=== PATIENT | male | born 2000 | race Caucasian/White ===

== ENCOUNTER 2019-06-19 09:31 | Emergency (ER) | payer BC, OTHER ==
[~2019-06-19] VITALS: Ht 177.8 cm; Wt 92.9 kg
[2019-06-19 09:40] VITALS: BP 143/78
[2019-06-19] MEDS ORDERED: morphine 4 MG/ML inj SYRINge IM ONE (11:30)
[2019-06-19] MEDS ORDERED: cyclobenzaprine 10mg tablet PO ONE (11:30)
== END 2019-06-19 11:48 | disposition home or self-care (01) ==
LOC: ER 09:31
DX: M79.602 Pain in left arm (principal); G89.29 Other chronic pain; R20.0 Anesthesia of skin
CPT/HCPCS: 96372; 99283; J2270

== ENCOUNTER 2022-06-11 19:43 | Emergency (ER) | payer MEDICAID, OTHER ==
[~2022-06-11] VITALS: Ht 177.8 cm; Wt 105.9 kg
[2022-06-11 20:22] LABS: BASOPHILS # (AUTO) 0.1 X10'3 (0-0.2); BASOPHILS % (AUTO) 0.8 % (0-1); EOSINOPHILS # (AUTO) 0.6 X10'3 (0-0.9); EOSINOPHILS % (AUTO) 3.8 % (0-6); HEMATOCRIT 40.9 % (42.0-52.0); HEMOGLOBIN 14.2 g/dl (14.0-17.9); LYMPHOCYTES # (AUTO) 3.8 X10'3 (1.1-4.8); LYMPHOCYTES % (AUTO) 25.1 % (21-51); MEAN CORPUSCULAR HEMOGLOBIN 32.1 PG (27.0-31.0); MEAN CORPUSCULAR HGB CONC 34.7 g/dL (33.0-36.5); MEAN CORPUSCULAR VOLUME 92.4 FL (78-98); MEAN PLATELET VOLUME 8.7 FL (7.4-10.4); MONOCYTES # (AUTO) 0.8 X10'3 (0-0.9); MONOCYTES % (AUTO) 5.4 % (2-12); NEUTROPHILS # (AUTO) 9.9 X10'3 (1.8-7.7); NEUTROPHILS % (AUTO) 64.9 % (42-75); PLATELET COUNT 247 X10'3 (140-440); RED BLOOD COUNT 4.43 X10'6 (4.70-6.10); RED CELL DISTRIBUTION WIDTH 14.4 % (11.5-14.5); WHITE BLOOD COUNT 15.2 X10'3 (4.5-11.0)
[2022-06-11 20:41] LABS: ALANINE AMINOTRANSFERASE 73 U/L (12-78); ALBUMIN 4.3 G/DL (3.4-5.0); ALBUMIN/GLOBULIN RATIO 1.3 (1.1-1.5); ALKALINE PHOSPHATASE 98 IU/L (46-116); ANION GAP 8 (8-16); ASPARTATE AMINO TRANSFERASE 26 U/L (10-37); BILIRUBIN,TOTAL 0.3 MG/DL (0.1-1.0); BLOOD UREA NITROGEN 11 MG/DL (7-18); BUN/CREATININE RATIO 11.1 (5.4-32.0); CALCIUM 9.2 MG/DL (8.5-10.1); CHLORIDE 102 MMOL/L (99-107); CREATININE 0.99 MG/DL (0.60-1.10); ETHANOL < 0.010 GM/DL (0.0-0.010); GLUCOSE 109 MG/DL (70-104); POTASSIUM 3.6 MMOL/L (3.5-5.1); SODIUM 139 MMOL/L (135-145); TOTAL CARBON DIOXIDE 29.3 MMOL/L (24-32); TOTAL PROTEIN 7.6 G/DL (6.4-8.2); eGFR > 90 ML/MIN
[2022-06-11 20:50] LABS: ACETAMINOPHEN < 2.0 UG/ML (10-30)
--- NOTE | 2022-06-12 00:31 | NUR ---
millie, grandfather, can be called for additional information. [phone]
[2022-06-12] MEDS ORDERED: BUPR-297 PO (00:47)
[2022-06-12] MEDS ORDERED: DULO60CA65 PO (00:47)
[2022-06-12] MEDS ORDERED: QUET100T34 PO (00:47)
[2022-06-12] MEDS ORDERED: LITH300C PO (00:47)
[2022-06-12] MEDS ORDERED: CARB100T50 PO (00:47)
[2022-06-12] MEDS ORDERED: CHOL20002 PO (00:47)
[2022-06-12 01:53] LABS: CLARITY,URINE CLEAR (Clear); COLOR,URINE YELLOW (Yellow); GLUCOSE, URINE NEGATIVE (Neg); KETONES,URINE NEGATIVE (Neg); LEUKOCYTE ESTERASE ,URINE NEGATIVE (Neg); NITRITES, URINE NEGATIVE (Neg); OCCULT BLOOD,URINE NEGATIVE (Neg); PH,URINE 6.5 (4.8-8.0); PROTEIN,URINE NEGATIVE (Neg); UROBILINOGEN,URINE 0.2 E.U/dL (0.2-1.0)
[2022-06-12 01:59] LABS: UA COLLECTION TYPE CLN CATCH MIDSTREAM
[2022-06-12 02:08] LABS: URINE AMPHETAMINE SCREEN NEGATIVE (Neg); URINE BARBITUATE SCREEN NEGATIVE (Neg); URINE BENZODIAZEPINES SCREEN NEGATIVE (Neg); URINE CANNABINOID SCREEN POSITIVE (Neg); URINE COCAINE SCREEN NEGATIVE (Neg); URINE METHADONE SCREEN NEGATIVE (Neg); URINE OPIATE SCREEN NEGATIVE (Neg); URINE PHENCYCLIDINE SCREEN NEGATIVE (Neg)
--- NOTE | 2022-06-12 02:49 | NUR ---
MED REC. GIVEN TO DR. CURRY TO REVIEW.
--- NOTE | 2022-06-12 02:51 | NUR ---
General assement reviewed
--- NOTE | 2022-06-12 03:14 | NUR ---
ASSUMED CARE FROM SHAHIDA AGGARWAL.
[2022-06-12] MEDS ORDERED: CLIN300C56 PO (03:55)
[2022-06-12] MEDS ORDERED: nicotine 21mg patch - 24 hr TD ONE (05:05)
[2022-06-12] MEDS: clindamycin 150mg capsule PO SCH ×2 (08:00→12:37)
[2022-06-12] MEDS ORDERED: duloxetine 30mg CAPSULE.DR PO SCH (08:00)
[2022-06-12] MEDS ORDERED: cholecalciferol (vitamin D3) 1,000 unit (25mcg) tablet PO SCH (08:00)
[2022-06-12] MEDS ORDERED: carBAMazepine Ext. Release 200 MG TAB.ER.12H PO SCH (08:00)
[2022-06-12] MEDS ORDERED: buPROPion 75mg tablet PO SCH (08:00)
--- NOTE | 2022-06-12 08:15 | NUR ---
LN received report from MARYCRUZ Collins @ approx 0659 today, pt stable. Pharmacy notified that three meds not in omnicell, carbamazepine, clindamycin, and wellbutrin, all needed for 0800. Awaiting delivery.
--- NOTE | 2022-06-12 08:21 | NUR ---
Pt is sleeping well att. Pt stated he was awake all night.
--- NOTE | 2022-06-12 10:20 | NUR ---
Pt took all 0800 medications as ordered. Pt is being evaluated by . Pt is calm and cooperative with staff.
--- NOTE | 2022-06-12 12:24 | NUR ---
Pt awake and sitting up in bed. Pt previously ambulated to restroom. Pt talked to family member on phone, seemed to alleviate some anxiety. Pt eating lunch well, with no complaints att.
--- NOTE | 2022-06-12 12:57 | NUR ---
Lab results - [place] 0.4 - MD gave order to continue [place] order 600mg BID. Order signed by MD and sent to pharmacy.
[2022-06-12] MEDS ORDERED: lithium carbonate 300mg SR tablet (LithoBID) PO ONE (13:45)
[2022-06-12] MEDS ORDERED: lithium carbonate 300mg SR tablet (LithoBID) PO SCH (13:45)
--- NOTE | 2022-06-12 14:10 | NUR ---
Pt ok'd by to transfer to [facility]. Report given to [facility] at approx 1445. Pt aware of transfer.
[2022-06-12 15:18] VITALS: BP 154/92
[2022-06-12] MEDS ORDERED: quetiapine 100mg tablet PO SCH (21:00)
== END 2022-06-12 15:21 ==
LOC: ER 19:44
DX: R45.851 Suicidal ideations (principal); Z20.822 Contact with and (suspected) exposure to COVID-19; R94.6 Abnormal results of thyroid function studies; G89.29 Other chronic pain; F41.9 Anxiety disorder, unspecified; F32.9 Major depressive disorder, single episode, unspecified; F17.200 Nicotine dependence, unspecified, uncomplicated; F12.90 Cannabis use, unspecified, uncomplicated; Z72.89 Other problems related to lifestyle; Z79.899 Other long term (current) drug therapy
CPT/HCPCS: 36415; 80053; 80305; 80320; 80329; 81003; 84443; 85025; 87811; 99285

== ENCOUNTER 2024-01-02 17:03 | Emergency (ER) | payer MEDICAID, OTHER ==
[~2024-01-02] VITALS: Ht 177.8 cm; Wt 114.6 kg
[~2024-01-02 17:03] MED LIST: BUPR-297 PO; CARB100T60 PO; CHOL20002 PO; CLIN300C56 PO; DULO60CA65 PO; LITH300C PO; QUET100T34 PO
[2024-01-02 17:06] VITALS: BP 155/88; PULSE 66; RESP 18; O2SAT 97
[2024-01-02] MEDS ORDERED: CAPSAICIN HP (0.1%) cream TP SCH (17:50)
[2024-01-02] MEDS: pregabalin 75mg capsule PO ONE (17:59)
[2024-01-02] MEDS: CAPSAICIN HP (0.1%) cream TP ONE (18:06)
[2024-01-02] MEDS: dexamethasone sod phosphate 10mg/ml inj PO STA (18:22)
[2024-01-02] MEDS ORDERED: PRED10TA23 PO (18:24)
[2024-01-02 18:34] VITALS: TEMP 98.3
== END 2024-01-02 18:35 | disposition home or self-care (01) ==
LOC: ER 17:03
DX: G62.9 Polyneuropathy, unspecified (principal); G89.29 Other chronic pain; F41.9 Anxiety disorder, unspecified; F32.A Depression, unspecified; F12.90 Cannabis use, unspecified, uncomplicated; Z72.89 Other problems related to lifestyle; Z79.899 Other long term (current) drug therapy; Z79.52 Long term (current) use of systemic steroids
CPT/HCPCS: 99284; J1100

== ENCOUNTER 2024-09-24 18:44 | Emergency (ER) | payer MEDICAID, OTHER ==
[~2024-09-24] VITALS: Ht 180.3 cm; Wt 116.8 kg
[2024-09-24 19:03] VITALS: BP 158/91; PULSE 124; O2SAT 98
[2024-09-24] MEDS ORDERED: PRED20TA PO (20:25)
[2024-09-24] MEDS ORDERED: METH-798 PO (20:25)
[2024-09-24 20:29] VITALS: TEMP 98.2
[2024-09-24] MEDS: dexamethasone sod phosphate 10mg/ml inj IM STA (20:37)
[2024-09-24 20:38] VITALS: RESP 16
[2024-09-24] MEDS: ketorolac trometh 15mg/ml vial 15 MG/ML ML IM ONE (20:38)
== END 2024-09-24 20:47 | disposition home or self-care (01) ==
LOC: ER 18:45
DX: M50.20 Other cervical disc displacement, unspecified cervical region (principal); G89.29 Other chronic pain; F41.9 Anxiety disorder, unspecified; F32.A Depression, unspecified; F12.90 Cannabis use, unspecified, uncomplicated; Z72.89 Other problems related to lifestyle; Z79.899 Other long term (current) drug therapy
CPT/HCPCS: 96372; 99284; J1100; J1885

== ENCOUNTER 2024-11-28 14:10 | Emergency (ER) | payer BC, MEDICAID ==
[~2024-11-28] VITALS: Ht 177.8 cm; Wt 96.8 kg
[~2024-11-28 14:10] MED LIST changes: +METH-798 PO
--- NOTE | 2024-11-28 14:22 | Physician Documentation ---
History of Present Illness ~ Chief Complaint: Shoulder pain Stated Complaint: PAIN IN SHOULDER AND NECK Time Seen by MD: 14:16 Primary Medical Doctor: [facility] Source: patient Mode of Arrival: POV Exam Limitations: no limitations HPI 24-year-old male with acute exacerbation of chronic neck and shoulder pain. Patient is being treated by his primary care provider as well as [facility]. Patient has a nerve conduction study scheduled for December 11 and a nerve block scheduled for December 22. Patient is taking methocarbamol and Lyrica for pain management that woke up with increased amount of pain. Patient is looking for pain relief. No new or acute injuries. Tetanus within 5 years?: No Medication Reconciliation Allergies: Coded Allergies: No Known Allergies (Unverified , 11/28/24) Scheduled Bupropion HCl (Bupropion HCl), 1 TAB PO BID, (Reported) Carbamazepine (Carbamazepine ER), 200 MG PO BID, (Reported) Cholecalciferol (Vitamin D3) (Vitamin D3), 2 CAP PO DAILY, (Reported) Clindamycin HCl (Clindamycin HCl), 1 CAP PO TID, (Reported) Duloxetine HCl (Duloxetine HCl), 1 CAP PO DAILY, (Reported) [place] Carbonate ([place]ot Carbonate), 2 CAP PO BID, (Reported) Methocarbamol (Methocarbamol), 1 TAB PO Q8H Quetiapine Fumarate (Quetiapine Fumarate), 1 TAB PO HS, (Reported) Past Medical History Past Medical History: Chronic Pain, *PSYCH*, Anxiety, Depression Past Surgical History: noncontributory Alcohol Use: Occasionally Drug Use: marijuana Lives with: Family Lives In: Home Review of Systems All Other Systems at this time: Reviewed and Negative Musculoskeletal: Reports: see HPI Physical Exam Vital Signs: RN Vital Signs have been reviewed: Yes, Temperature: 98.6, Heart Rate: 88, Respiratory Rate: 16, BP: 147/90, Pulse Oximetry: 98, Weight: 96.850 Oxygen Flow Rate: 0 General Appearance: alert, WD/WN, no apparent distress Shoulder: normal inspection Shoulder Tenderness to palpate the trapezius and deltoid left shoulder Elbow/Forearm: normal inspection, normal ROM Distal Function: normal pulse, normal cap. refill, normal motor function Progress Results/Orders Results/Orders Vital Signs 11/28/24 14:13 Temp 98.6 Pulse 88 Resp 16 B/P (MAP) 147/90 Pulse Ox 98 O2 Flow Rate 0 Medical Decision Making Findings Requesting he manage spent so he can see primary care for further pain management [facility] Departure Time of Disposition: 14:21 Disposition: 01 HOME / SELF CARE / HOMELESS Impression: Primary Impression: Chronic neck pain Additional Impression: Neuropathy Condition: Stable Discharge Instructions: Shoulder Pain, [id number] Additional Instructions: Continue with the appointments with primary care and [facility]. Referrals: NO PRIMARY CARE PROVIDER (PCP) Education Educated: Patient Educated regarding: diagnosis, treatment, need for follow up Signature Scribe Signature: No scribe Attestation: The note accurately reflects work and decisions made by me.Naima SPENCER 11/28/24 14:21 NAIMA ASHRAF NP Nov 28, 2024 14:22
[2024-11-28] MEDS: HYDROcodone/acetaminophen 10/325mg tab PO ONE (14:30)
[2024-11-28] MEDS: ketorolac trometh 30MG/ML vial 30 MG/ML VIAL IM ONE (14:30)
[2024-11-28 14:36] VITALS: BP 139/85; PULSE 96; RESP 15; TEMP 98.6; O2SAT 99
== END 2024-11-28 14:39 | disposition home or self-care (01) ==
LOC: ER 14:10
DX: G89.29 Other chronic pain (principal); M54.2 Cervicalgia; G62.9 Polyneuropathy, unspecified; M25.512 Pain in left shoulder; F41.9 Anxiety disorder, unspecified; F32.A Depression, unspecified; F12.90 Cannabis use, unspecified, uncomplicated
CPT/HCPCS: 96372; 99283; J1885

== ENCOUNTER 2024-12-12 17:37 | Emergency (ER) | payer BC, MEDICAID ==
[~2024-12-12] VITALS: Ht 177.8 cm; Wt 109.1 kg
[2024-12-12 17:43] VITALS: TEMP 97.8
[2024-12-12] MEDS ORDERED: PREG150C47 PO (17:50)
[2024-12-12] MEDS ORDERED: TIZA4CAP6 (17:50)
[2024-12-12] MEDS ORDERED: LISI30TA4 PO (17:50)
--- NOTE | 2024-12-12 17:57 | ELECTROCARDIOGRAPH REPORT ---
[facility] Test Date: 2024-12-12 Test Time: 17:43:51 Pat Name: RHEA HAWKINS Department: EMERGENCY ROOM Room: Gender: M Wine Sales Representative: : 2000 Requested By: JAVAN PLATA Order Number: [id number] Reading MD: Measurements Intervals [place] Rate: 83 P: 59 NH: 141 QRS: 72 QRSD: 104 T: 3 QT: 375 QTc: 441 Interpretive Statements Sinus rhythm Borderline T wave abnormalities Please click the below link to view image of tracing.
--- NOTE | 2024-12-12 18:00 | Physician Documentation ---
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 He is outside for about 45 minutes changing the tire. It was extremely hot. Following this he started to feel very lightheaded, short of breath, sweaty, and weak. He went home and tried to cool himself off, got in the cold shower, turn on the air conditioning. However, he continued to feel worse including ongoing dizziness and shortness of breath, tingling in his hands and feet, and generalized weakness. He did use his albuterol inhaler twice with only partial improvement. He then started vomiting. His called 911. Here now in the ED, he reports feeling still generally weak and mildly short of breath, but his other symptoms are improving. He has only mild nausea at this time. No other concerns. Medication Reconciliation Allergies: Coded Allergies: No Known Allergies (Unverified , 12/12/24) Scheduled Lisinopril (Lisinopril), 1 TAB PO DAILY, (Reported) Prednisone* (Prednisone*), 2 TAB PO DAILY Pregabalin (Pregabalin), 1 CAP PO TID, (Reported) Miscellaneous Medications Tizanidine Hcl* (Tizanidine Hcl*), (Reported) Discontinued Medications Bupropion HCl (Bupropion HCl), 1 TAB PO BID, (Reported) Discontinued Reason: patient no longer taking Carbamazepine (Carbamazepine ER), 200 MG PO BID, (Reported) Discontinued Reason: patient no longer taking Cholecalciferol (Vitamin D3) (Vitamin D3), 2 CAP PO DAILY, (Reported) Discontinued Reason: patient no longer taking Clindamycin HCl (Clindamycin HCl), 1 CAP PO TID, (Reported) Discontinued Reason: patient no longer taking Duloxetine HCl (Duloxetine HCl), 1 CAP PO DAILY, (Reported) Discontinued Reason: patient no longer taking [place] Carbonate ([place] Carbonate), 2 CAP PO BID, (Reported) Discontinued Reason: patient no longer taking Methocarbamol (Methocarbamol), 1 TAB PO Q8H Discontinued Reason: patient no longer taking Quetiapine Fumarate (Quetiapine Fumarate), 1 TAB PO HS, (Reported) Discontinued Reason: patient no longer taking Past Medical History Past Medical History: Chronic Pain, *PSYCH*, Anxiety, Depression Past Surgical History: noncontributory Alcohol Use: Occasionally Drug Use: marijuana Lives with: Family Lives In: Home Review of Systems Constitutional: Reports: weakness Respiratory: Reports: shortness of breath Cardiovascular: Reports: lightheadedness Gastrointestinal: Reports: nausea, vomiting; Denies: abdominal pain Physical Exam Vital Signs: Temperature: 97.8, Source: Temporal, Heart Rate: 94, Respiratory Rate: 15, BP: 152/80, Pulse Oximetry: 97, Weight: 109.090 Physical Exam General: This is a young male lying in bed, not wearing a shirt, not in distress, grandmother at bedside HEENT: Atraumatic, oropharynx appears dry Heart: Mild tachycardic, appears regular Lungs: Faint wheezing sounds bilateral, normal work of breathing, speaking in full sentences, normal oxygen saturation on room air Abdomen: Soft, nondistended, nontender all quadrants Neuro: Alert and oriented Psychiatric: Appears tired but is cooperative with exam Skin: Slightly flushed in the face, but otherwise skin is normal tone and temperature Progress Results/Orders Results/Orders Orders - CORNEL MELGAR MD General Nursing Order (12/12/24 ) Completed Orders - CORNEL MELGAR MD Ondansetron Inj. (Zofran 4mg/2ml Vial) (12/12/24 18:25) Albuterol 2.5mg/3ml Nebule (Proventil 2. (12/12/24 18:25) * Rt Notification Q1H (12/12/24 18:25) Prednisone Tablet (Prednisone Tablet) (12/12/24 19:30) Medications Received in ER Medications (Trade) Dose Ordered Sig/Amish Route PRN Reason Start Time Stop Time Status Last Admin Dose Admin (Zofran 4mg/2ml vial) 4 mg ONCE ONCE IV 12/12/24 18:25 12/12/24 18:27 DC 12/12/24 19:01 4 MG (Proventil 2.5 MG/3ML nebule) 2.5 mg ONCE ONCE NEB 12/12/24 18:25 12/12/24 18:27 DC 12/12/24 19:08 2.5 MG (predniSONE tablet) 40 mg ONCE ONCE PO 12/12/24 19:30 12/12/24 19:31 DC 12/12/24 19:34 40 MG Vital Signs 12/12/24 12/12/24 12/12/24 12/12/24 17:43 18:56 18:59 19:10 Temp 97.8 Pulse 94 78 72 Resp 15 18 18 18 B/P (MAP) 152/80 127/67 (87) Pulse Ox 97 98 97 O2 Delivery Room Air* O2 Flow Rate 0 FiO2 21 12/12/24 19:17 Pulse 82 Resp 16 Pulse Ox 93 O2 Delivery Room Air* O2 Flow Rate 0 FiO2 21 EKG/XRAY/CT/US/VASC/MRI EKG : Additional Comment I personally interpreted the EKG and this shows: No acute ischemic changes, normal QTC, no acute dysrhythmia Medical Decision Making Differential Dx:Considerations: Include: Dehydration, Electrolyte imbalance, Heat cramps, Heat exhaustion, Heat stoke Assessment 24-year-old male presenting with heat exposure. Per his history and exam, all of his symptoms seem related to heat exposure, with mild asthma type symptoms as well. By time of my evaluation he is well-appearing, and seems to have mostly recovered. He already received 1 L of IV fluids from EMS. He was given Zofran and an albuterol nebulizer. Following this he was given ice water and tolerated it without vomiting. I do not feel that any further workup or testing is indicated including do not feel that lab work would be beneficial at this time given his clear story and young age. Following treatment he did feel better. He will be discharged with home care instructions and a course of prednisone for an asthma exacerbation. Return precautions given. He has his inhaler at home. Departure Time of Disposition: 19:28 Disposition: 01 HOME / SELF CARE / HOMELESS Impression: Primary Impression: Heat exposure Additional Impressions: Dehydration Asthma exacerbation Condition: Improved Discharge Instructions: Heat Illness Referrals: NO PRIMARY CARE PROVIDER (PCP) Prescriptions Prednisone* (Prednisone*) 20 Mg Tablet 2 TAB PO DAILY for 4 Days, #8 TAB Prov: CORNEL MELGAR MD 12/12/24 Education Educated: Patient, Family Educated regarding: diagnosis, treatment, need for follow up Signature Scribe Signature: [email or web address] Attestation: CORNEL Armijo MD Dec 12, 2024 18:00
[2024-12-12 18:59] VITALS: BP 127/67
[2024-12-12] MEDS: ondansetron/PF 4mg/2ml inj IV ONE (19:01)
[2024-12-12] MEDS: albuterol 2.5 MG/3 ML nebule NEB ONE (19:08)
[2024-12-12 19:10] VITALS: PULSE 72; RESP 18; O2SAT 97
[2024-12-12 19:17] VITALS: PULSE 82; RESP 16; O2SAT 93
[2024-12-12] MEDS ORDERED: PRED20TA PO (19:28)
== END 2024-12-12 19:42 | disposition home or self-care (01) ==
LOC: ER 17:38
DX: J45.901 Unspecified asthma with (acute) exacerbation (principal); E86.0 Dehydration; T67.5XXA Heat exhaustion, unspecified, initial encounter; F41.9 Anxiety disorder, unspecified; F32.A Depression, unspecified; F12.90 Cannabis use, unspecified, uncomplicated; Z88.8 Allergy status to other drugs, medicaments and biological substances; Z79.899 Other long term (current) drug therapy; Z72.89 Other problems related to lifestyle; X58.XXXA Exposure to other specified factors, initial encounter; Y93.89 Activity, other specified; Y92.89 Other specified places as the place of occurrence of the external cause; Y99.8 Other external cause status
CPT/HCPCS: 93005; 94640; 96374; 99283; J2405; J7512; 94760

== ENCOUNTER 2025-01-05 12:23 | Emergency (ER) | payer BC, MEDICAID ==
[~2025-01-05] VITALS: Ht 177.8 cm; Wt 120.9 kg
[~2025-01-05 12:23] MED LIST changes: -BUPR-297 PO; -CARB100T60 PO; -CHOL20002 PO; -CLIN300C56 PO; -DULO60CA65 PO; +LISI30TA4 PO; -LITH300C PO; -METH-798 PO; +PREG150C47 PO; -QUET100T34 PO; +TIZA4CAP6
[2025-01-05] MEDS: ketorolac trometh 30MG/ML vial 30 MG/ML VIAL IM ONE (15:55)
--- NOTE | 2025-01-05 16:13 | Physician Documentation ---
History of Present Illness ~ Chief Complaint: Numbness Stated Complaint: SHOULDER/NECK PAIN Time Seen by MD: 16:10 Primary Medical Doctor: [facility] This is a 24-year-old male with chronic neck pain and cervical radiculopathy secondary to multiple disc herniations. The patient has been suffering from this problem for a couple of years now. He states that he has pain in the left side of his neck which radiates up into the back of his head as well as down his left trapezius and shoulder and down his arm causing numbness and tingling as well. Reports that he was initially said to go to [place] to have a cervical epidural performed. However his insurance changed and they instead have now referred him to a pain management physician here in [place]. He still has been unable to get that appointment in does not know when he will be able to have that done. So he states that the pain is now very bothersome. It fluctuates in intensity and he states that over the past couple of days it has been very bad. He is currently on Lyrica and tizanidine with only mild relief. Medication Reconciliation Allergies: Coded Allergies: No Known Allergies (Unverified , 01/05/25) Scheduled Lisinopril (Lisinopril), 1 TAB PO DAILY, (Reported) Methylprednisolone (Medrol Dosepak), 0 PO UD Pregabalin (Pregabalin), 1 CAP PO TID, (Reported) Miscellaneous Medications Tizanidine Hcl* (Tizanidine Hcl*), (Reported) Past Medical History Past Medical History: Chronic Pain, *PSYCH*, Anxiety, Depression Past Surgical History: noncontributory Smoking Status: Never smoker Alcohol Use: Occasionally Drug Use: marijuana Lives with: Family Lives In: Home Review of Systems All Other Systems at this time: Reviewed and Negative Physical Exam Vital Signs: Temperature: 97.8, Source: Temporal, Heart Rate: 84, Respiratory Rate: 16, BP: 153/93, Pulse Oximetry: 98, Weight: 120.900 Physical Exam I have reviewed the triage vitals. CONST: Well developed and well nourished. In no acute distress HENT: Head Atraumatic EYES: Pupils are equal, round and reactive to light. Normal conjunctiva NECK: Normal range of motion. Supple. There is tenderness to palpation over the cervical vertebrae as well as the cervical paraspinal muscles including several tense tender trigger points over the trapezius area as well as the paraspinal muscles. Range of motion of the neck causes pain in these areas. Patient has a positive Spurling's test on the left. Additionally the patient has tenderness to palpation at the base of the occiput at its intersection with the paraspinal muscles directly over the occipital nerve. Palpation of this area reproduces headache. CARDIO: Normal rate and regular rhythm. No murmurs, rubs, or gallops. S1, S2. PULM/CHEST: No respiratory distress. Lungs clear to auscultation. No wheeze ABD: Soft and nontender. Nondistended. Bowel sounds normal. No guarding. : Exam deferred MSK: No edema. No deformity. NEURO: Alert and oriented to person, place and time. Moving all extremities. Normal strength and sensation bilaterally. SKIN: Warm and dry. PSYCH: Normal mood and affect. Good eye contact. Procedures Trigger Point Injection Injected: lidocaine, other (Dexamethasone 10 mg/1cc- 1 cc) Needle Size: 25 Patient Relief: moderate Tolerated Procedure Well?: yes, no complications Procedure Note I performed trigger point injections on five separate trigger points over the left trapezius muscle with a solution of 4 cc 1% lidocaine and 1 cc 10 mg/1cc dexamethasone evenly dividing the solution with a five trigger points. 25 gauge needle used for injection. Nerve Block Nerve Block Site: Left occipital nerve Anesthetic Used: lidocaine 1%, other (1 cc 10 mg/1cc dexamethasone) Volume Anesthetic (ccs): 1 Tolerated Procedure Well?: yes, no complications Progress Results/Orders Results/Orders Orders - ANDREEA BRIGHT MD [facility] (01/05/25 16:13) Completed Orders - ANDREEA BRIGHT MD [facility] (01/05/25 16:13) Vital Signs 01/05/25 01/05/25 01/05/25 01/05/25 12:59 15:55 18:42 19:14 Temp 97.8 98.6 98.6 Pulse 84 80 Resp 18 16 16 B/P (MAP) 153/93 150/89 (109) Pulse Ox 98 97 EKG/XRAY/CT/US/VASC/MRI Bone/Soft Tissue X-Ray (Spine) : Additional Comment CLINICAL INDICATION: neck pain TECHNIQUE: 4 radiographic views of the cervical spine were obtained. Comparison: None FINDINGS/IMPRESSION: 7 [id number] cervical type vertebrae. Straightening of the cervical lordosis. Minimal anterior wedge deformity of C6 of unknown chronicity. Othe rwise, no evidence for acute traumatic fractures or spondylolisthesis. The prevertebral soft tissues unremarkable. Airways are patent. Medical Decision Making Additional Comment 24-year-old male presenting with chronic neck pain and cervical radiculopathy. Additionally he does have left occipital neuralgia as well as significant trigger points of the left trapezius muscle. The patient is in need of a cer vical epidural injection and he is in the process of getting this set up. I advised the patient that he needs to follow up as an outpatient to get this done and that we can not perform this here in the emergency department. However given his significant pain and discomfort I did perform a occipital nerve injection as well as left trapezius trigger point injections-please see proc edure notes. This provided the patient with some degree of relief. Patient is already on tizanidine as well as Lyrica. I advised him to continue using these medications as needed. Additionally for further pain control we did prescribe him a Medrol Dosepak. I advised the patient that use the medication as prescribed. Monitor symptoms and follow up as soon as possible with pain management for further definitive care. Return to the ED with any acutely worsening symptoms. Departure Disposition: 01 HOME / SELF CARE / HOMELESS Impression: Primary Impression: Cervical radiculopathy Additional Impressions: Occipital neuralgia Trigger point of left shoulder region Additional Instructions: With your primary care provider to schedule epidural placement with your previous plan and workup. Please return to the emergency department if you have any worsening symptoms or any additional concerning symptoms. Referrals: NO PRIMARY CARE PROVIDER (PCP) Prescriptions Methylprednisolone (Medrol Dosepak) 4 Mg Tab.ds.pk 0 PO UD, #21 TAB 0 Refills take 6 Pills Day 1, 5 Pills Day 2, 4 Pills Day 3, 3 Pills Day 4, 2 Pills Day 5 and 1 pill Day 6 Prov: MARKEL JACQUES 01/05/25 Education Educated: Patient Educated regarding: treatment, need for follow up Signature Scribe Signature: 1 Attestation: 1 ANDREEA BRIGHT MD Jan 05, 2025 16:13 MARKEL JACQUES Jan 05, 2025 19:09
[2025-01-05] MEDS: LIDOcaine 1% 30ml preserv. free vial IJ STA (16:19)
[2025-01-05] MEDS: dexamethasone sod phosphate 10mg/ml inj IM STA ×2 (16:19)
--- NOTE | 2025-01-05 16:59 | RADIOLOGY REPORT ---
CLINICAL INDICATION: neck pain TECHNIQUE: 4 radiographic views of the cervical spine were obtained. Comparison: None FINDINGS/IMPRESSION: 7 [id number] cervical type vertebrae. Straightening of the cervical lordosis. Minimal anterio r wedge deformity of C6 of unknown chronicity. Otherwise, no evidence for acute traumatic fractures or spondylolisthesis. The prevertebral soft tissues unremarkable. Airways are patent.
[2025-01-05 18:42] VITALS: BP 150/89; PULSE 80; RESP 16; O2SAT 97
[2025-01-05] MEDS ORDERED: METH4TAB81 PO (19:06)
[2025-01-05 19:14] VITALS: TEMP 98.6
== END 2025-01-05 19:17 | disposition home or self-care (01) ==
LOC: ER 12:23
DX: M54.12 Radiculopathy, cervical region (principal); M54.81 Occipital neuralgia; F12.90 Cannabis use, unspecified, uncomplicated; Z79.899 Other long term (current) drug therapy
CPT/HCPCS: 20552; 72040; 96372; 99284; J1885

== ENCOUNTER 2025-01-07 10:55 | Emergency (ER) | payer BC, MEDICAID ==
[~2025-01-07] VITALS: Ht 180.3 cm; Wt 119.6 kg
[~2025-01-07 10:55] MED LIST changes: +METH4TAB81 PO
[2025-01-07 11:01] VITALS: BP 163/92; PULSE 70; RESP 16; O2SAT 98
[2025-01-07] MEDS ORDERED: HYDR-3965 PO (15:06)
--- NOTE | 2025-01-07 15:07 | Physician Documentation ---
History of Present Illness ~ Chief Complaint: Neck pain Stated Complaint: SHOULDER/NECK PAIN Time Seen by MD: 15:01 Primary Medical Doctor: [facility] HPI Three 4-year-old male that presents to the emergency department for chronic neck pain. He reports that he was seen here couple days ago and received trigger point injections and an occipital nerve block. He reports that he has the same pain that has returned and would like another block. Medication Reconciliation Allergies: Coded Allergies: No Known Allergies (Unverified , 01/05/25) Scheduled Lisinopril (Lisinopril), 1 TAB PO DAILY, (Reported) Methylprednisolone (Medrol Dosepak), 0 PO UD Methylprednisolone (Medrol Dosepak), 0 PO UD Pregabalin (Pregabalin), 1 CAP PO TID, (Reported) Scheduled PRN Hydrocodone Bit/Acetaminophen 5/325 MG ([place] 5/325 MG), 1 TAB PO Q6H PRN for pain Miscellaneous Medications Tizanidine Hcl* (Tizanidine Hcl*), (Reported) Past Medical History Past Medical History: Chronic Pain, *PSYCH*, Anxiety, Depression Past Surgical History: noncontributory Smoking Status: Former smoker Alcohol Use: Occasionally Drug Use: marijuana Lives with: Family Lives In: Home Physical Exam Vital Signs: Temperature: 98.3, Source: Oral, Heart Rate: 70, Respiratory Rate: 16, BP: 163/92, Pulse Oximetry: 98, Weight: 119.600 Oxygen Flow Rate: 0 Progress Results/Orders Results/Orders Vital Signs 01/07/25 01/07/25 11:01 15:14 Temp 98.3 98.3 Pulse 70 Resp 16 B/P (MAP) 163/92 Pulse Ox 98 O2 Flow Rate 0 Departure Disposition: 01 HOME / SELF CARE / HOMELESS Impression: Primary Impression: Neck pain Additional Impressions: Bulging disc Bulging of cervical intervertebral disc Discharge Instructions: Cervical Sprain Additional Instructions: Today you were evaluated for chronic neck pain. Your seen and evaluated. Prescribed prescription of [place] for you please take the medication as instructed. The primary care provider for additional imaging corticosteroid injections in the nerve blocks that are in your plan for cervical disc. Return to the emergency department if you have any worsening or recurrent symptoms or any additional concerning symptoms that were discussed her today present Referrals: NO PRIMARY CARE PROVIDER (PCP) Prescriptions Hydrocodone Bit/Acetaminophen 5/325 MG ([place] 5/325 MG) 5 Mg/325 Mg Tablet 1 TAB PO Q6H PRN for pain for 4 Days, #16 TAB Prov: MARKEL JACQUESP 01/07/25 Methylprednisolone (Medrol Dosepak) 4 Mg Tab.ds.pk 0 PO UD, #21 TAB 0 Refills take 6 Pills Day 1, 5 Pills Day 2, 4 Pills Day 3, 3 Pills Day 4, 2 Pills Day 5 and 1 pill Day 6 Prov: MARKEL JACQUESP 01/07/25 Education Educated: Patient Educated regarding: treatment, need for follow up Signature Scribe Signature: . Attestation: I have reviewed this case [id number] with the PA, including physical examin ation, laboratory and imaging results as appropriate. The patient was evaluated [id number] and I agree with the PA's notes. I agree with the findings, evaluation and disposition. MARKEL JACQUES Jan 07, 2025 15:07 MARK CURRY MD Jan 08, 2025 16:22
[2025-01-07 15:14] VITALS: TEMP 98.3
== END 2025-01-07 15:16 | disposition home or self-care (01) ==
LOC: ER 10:55
DX: M50.30 Other cervical disc degeneration, unspecified cervical region (principal); F32.A Depression, unspecified; F41.9 Anxiety disorder, unspecified; F12.90 Cannabis use, unspecified, uncomplicated; Z87.891 Personal history of nicotine dependence
CPT/HCPCS: 99283

== ENCOUNTER 2025-01-19 12:14 | Emergency (ER) | payer BC, MEDICAID ==
[~2025-01-19] VITALS: Ht 175.3 cm; Wt 121.2 kg
[2025-01-19] MEDS ORDERED: IBUP-1986 PO (12:32)
[2025-01-19] MEDS ORDERED: ACET-1025 PO (12:32)
--- NOTE | 2025-01-19 12:33 | Physician Documentation ---
History of Present Illness ~ Chief Complaint: Neck pain Stated Complaint: SHOULDER PAIN Time Seen by MD: 12:29 Primary Medical Doctor: [facility] HPI Patient is seen today with complaints of left-sided neck pain. Patient states he has had this neck pain for about a year now and states he has had multiple treatments including acupuncture and occipital nerve block as well as multiple Toradol shots and prescriptions of Oracle. Patient states he is not currently taking Tylenol or ibuprofen for this neck pain. Patient states he does have an appointment with pain management and his primary care later this week in about three days. Patient denies any saddle anesthesia or changes in bowel or bladder habits and has no other concern or complaint at this time. Medication Reconciliation Allergies: Coded Allergies: No Known Allergies (Unverified , 01/05/25) Scheduled Lisinopril (Lisinopril), 1 TAB PO DAILY, (Reported) Methylprednisolone (Medrol Dosepak), 0 PO UD Methylprednisolone (Medrol Dosepak), 0 PO UD Pregabalin (Pregabalin), 1 CAP PO TID, (Reported) Miscellaneous Medications Tizanidine Hcl* (Tizanidine Hcl*), (Reported) Discontinued Medications Hydrocodone Bit/Acetaminophen 5/325 MG (Oracle 5/325 MG), 1 TAB PO Q6H PRN for pain Discontinued Reason: Auto Discontinued Past Medical History Past Medical History: Chronic Pain, *PSYCH*, Anxiety, Depression Past Surgical History: noncontributory Alcohol Use: Occasionally Drug Use: marijuana Lives with: Family Lives In: Home Review of Systems Constitutional: Denies: chills, fever, weakness Eyes: Denies: pain, blurred vision ENT: Denies: ear pain, nose pain, throat pain, mouth pain Respiratory: Denies: cough, shortness of breath Cardiovascular: Denies: chest pain, palpitations Gastrointestinal: Denies: abdominal pain, nausea, vomiting Genitourinary: Denies: burning, dysuria Male Genitalia: Denies: penile discharge, testicular pain Neurological: Denies: headache, dizziness Musculoskeletal: Denies: pain, swelling Integumentary: Denies: rash, lesions Allergic/Immunologic: Denies: hives, itching Hematologic/Lymphatic: Denies: no symptoms reported Psychiatric: Denies: depression, anxiety Physical Exam Vital Signs: Temperature: 97.8, Source: Temporal, Heart Rate: 79, Respiratory Rate: 18, BP: 181/93, Pulse Oximetry: 98, Weight: 121.200 Physical Exam General: Awake and Alert, no acute distress. HEENT: Conjunctiva pink, Sclera clear, Mucus Membranes moist. Neck: Supple without masses and tenderness. Resp: Unlabored. Lungs clear to auscultation bilaterally. Heart: Regular Rate and rhythm, normal S1 and S2 without murmur, rub or gallop. Musculoskeletal: Patient on exam has decreased range of motion of the cervical spine in all planes of motion. Patient is neurovascularly intact distally of the bilateral upper extremities. Motor function and strength intact distally. Extremities: No cyanosis,clubbing or edema. Skin: Warm and Dry. Progress Results/Orders Results/Orders Vital Signs 01/19/25 12:23 Temp 97.8 Pulse 79 Resp 18 B/P (MAP) 181/93 Pulse Ox 98 Medical Decision Making Findings Patient is seen today with complaints of left-sided neck pain. Patient states he has had this neck pain for about a year now and states he has had multiple treatments including acupuncture and occipital nerve block as well as multiple Toradol shots and prescriptions of Oracle. Patient states he is not currently taking Tylenol or ibuprofen for this neck pain. Patient states he does have an appointment with pain management and his primary care later this week in about three days. Patient denies any saddle anesthesia or changes in bowel or bladder habits and has no other concern or complaint at this time. Patient is given prescription for Tylenol ibuprofen to be taken as needed sent to patient's pharmacy. Patient will keep appointments with primary care and pain management and will return to ED with any worsening, concerning or changing symptoms. Departure Disposition: 01 HOME / SELF CARE / HOMELESS Impression: Primary Impression: Neck pain Additional Impression: Torticollis Condition: Stable Discharge Instructions: Acute Torticollis, Adult Additional Instructions: Patient is given prescription for Tylenol ibuprofen to be taken as needed sent to patient's pharmacy. Patient will keep appointments with primary care and pain management and will return to ED with any worsening, concerning or changing symptoms. Referrals: NO PRIMARY CARE PROVIDER (PCP) Prescriptions Acetaminophen (Tylenol Extra Strength) 500 Mg Tablet 2 TAB PO Q6H PRN PRN for pain or fever for 7 Days, #56 TAB Prov: JEAN OVALLES PAC 01/19/25 Ibuprofen (Ibuprofen) 800 Mg Tablet 1 TAB PO Q8H for pain for 10 Days, #30 TAB 0 Refills Prov: JEAN OVALLES PAC 01/19/25 Signature Scribe Signature: No scribe Attestation: No scribe JEAN OVALLES PAC Jan 19, 2025 12:33
[2025-01-19 13:01] VITALS: BP 148/86; PULSE 88; RESP 18; TEMP 98.9; O2SAT 98
== END 2025-01-19 13:02 | disposition home or self-care (01) ==
LOC: ER 12:15
DX: M43.6 Torticollis (principal); F41.9 Anxiety disorder, unspecified; F32.A Depression, unspecified; F12.90 Cannabis use, unspecified, uncomplicated; Z72.89 Other problems related to lifestyle; Z79.899 Other long term (current) drug therapy
CPT/HCPCS: 99282

== ENCOUNTER 2025-01-26 12:26 | Outpatient (CLI) | payer BC, MEDICAID ==
[~2025-01-26 12:26] MED LIST changes: +ACET-1025 PO; +IBUP-1986 PO
--- NOTE | 2025-01-26 14:42 | RADIOLOGY REPORT ---
PROCEDURE: MR MRI HEAD Indication: UNSPECIFIED MONONEUROPATHY OF LEFT UPPER LIMB COMPARISON: None TECHNIQUE: Multiplanar multisequence images of the brain are obtained. FINDINGS: There is no abnormal diffusion restriction. Mild periventricular and subcortical white matter T2 /FLA IR hyperintense changes. There is no intracranial hemorrhage. No extra-axial fluid collection, mass e ffect or midline shift. The ventricles are midline and normal in size. The cisterns are patent. Lissette l intracranial flow voids are preserved. No abnormal susceptibility signal. No CP angle / IAC mass. N o abnormal intracranial enhancement. The sinuses and mastoids are well pneumatized. The visualized orbits are unremarkable. IMPRESSION: No acute cerebrovascular ischemia. No abnormal intracranial enhancement. Mild T2/FLAIR hyperintense changes which could be secondary to migraines, chronic microvascular disea se, demyelinating processes.
[2025-01-26] MEDS ORDERED: GADOTERATE MEGLUMINE 7.5 MMOL/15 ML VIAL IV ONE (16:57)
== END 2025-01-26 23:59 | disposition home or self-care (01) ==
LOC: MRI 12:26
PROVIDERS: ATTEND Student in an Organized Health Care Education/Training Program
DX: G56.92 Unspecified mononeuropathy of left upper limb (principal)
CPT/HCPCS: 70553; A9575

== ENCOUNTER 2025-01-28 13:56 | Inpatient (IN) | payer BC, MEDICAID ==
[~2025-01-28] VITALS: Ht 175.3 cm; Wt 119.7 kg
[~2025-01-28 13:56] MED LIST changes: -ACET-1025 PO
[2025-01-28 15:51] LABS: MEAN PLATELET VOLUME 9.2 FL (7.4-10.4); RED CELL DISTRIBUTION WIDTH 12.9 % (11.5-14.5)
--- NOTE | 2025-01-28 15:51 | Physician Documentation ---
History of Present Illness ~ Chief Complaint: Numbness Stated Complaint: POSS MED REACTION CONFUSION Time Seen by MD: 15:08 Primary Medical Doctor: [facility] HPI Presents with left-sided upper extremetiy numbness and weakness which started 10:30 a.m. today. States that he has a recent increased tizanidine dose. Patient's states she knows noticed that the patient had slurred speech earlier today. 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 He says his the MRI did not indicate any lesions but did show some evidence of demyelination Day of Onset: Jan 28, 2025 Medication Reconciliation Allergies: Coded Allergies: No Known Allergies (Unverified , 01/28/25) Scheduled Albuterol Sulfate/Budesonide (Airsupra 90-80 Mcg Inhaler), 90 MCG NEB PRN, (Reported) Lisinopril (Lisinopril), 1 TAB PO DAILY, (Reported) Pregabalin (Pregabalin), 1 CAP PO TID, (Reported) Tizanidine Hcl (Tizanidine Hcl), 1 CAP PO Q8H, (Reported) Discontinued Medications Acetaminophen (Tylenol Extra Strength), 2 TAB PO Q6H PRN PRN for pain or fever Discontinued Reason: Auto Discontinued Ibuprofen (Ibuprofen), 1 TAB PO Q8H Discontinued Reason: patient no longer taking Methylprednisolone (Medrol Dosepak), 0 PO UD Discontinued Reason: patient no longer taking Methylprednisolone (Medrol Dosepak), 0 PO UD Discontinued Reason: patient no longer taking Tizanidine Hcl* (Tizanidine Hcl*), (Reported) Discontinued Reason: patient no longer taking Past Medical History Past Medical History: Chronic Pain, *PSYCH*, Anxiety, Depression Past Surgical History: noncontributory Alcohol Use: Occasionally Drug Use: marijuana Lives with: Family Lives In: Home Review of Systems All Other Systems at this time: Reviewed and Negative ROS As stated above in the HPI, otherwise all systems are reviewed and negative. Physical Exam Vital Signs: Temperature: 98.1, Source: Temporal, Heart Rate: 92, Respiratory Rate: 16, BP: 161/79, Pulse Oximetry: 97, Weight: 119.700 Oxygen Flow Rate: 0 Pupils/EOM/Fundus: PERRLA, EOM intact Neck: full range of motion Respiratory: lungs clear Chest: no accessory muscle use Orientation / Memory / CN Exam: No: oriented x3, oriented x2, oriented x1, not oriented, memory intact, impaired memory, cemetery laborer II-XII nml as tested, cemetery laborer II-XII deficit, unable to test CN, normal hearing, normal speech, abnormal eye position, abnormal gag reflex, abnormal pupil position, abnormal speech, facial asymmetry, facial droop, facial paresthesias, facial weakness, gaze palsy, hearing deficit (R), hearing deficit (L), tongue deviation to R, tongue deviation to L, other Motor / Sensory: weak motor strength LUE Psychiatric: appropriate Skin: warm/dry, normal color Progress Results/Orders Results/Orders Orders - MANUEL ACOSTA TRUCK SUPERVISOR Monitor (01/28/25 15:27) Chest,Single View (01/28/25 15:27) [place] Prov.Neuro Consult (01/28/25 16:31) Vitamin B12 (01/28/25 16:43) Page Hospitalist (01/28/25 ) Cta Neck/Head (01/28/25 ) Completed Orders - MANUEL ACOSTA TRUCK SUPERVISOR Cbc/Diff (01/28/25 15:27) Chest,Single View (01/28/25 15:27) Iohexol 350mg/Ml 100ml (Omnipaque 350mg/ (01/28/25 15:32) CMP (01/28/25 15:32) ESR (01/28/25 15:54) Electrocardiogram (01/28/25 ) CK (01/28/25 15:34) Cta Neck/Head (01/28/25 ) PBNP (01/28/25 15:34) Vital Signs 01/28/25 01/28/25 01/28/25 14:05 16:06 17:11 Temp 98.1 Pulse 92 81 65 Resp 16 16 18 B/P (MAP) 161/79 142/83 (102) 146/80 (102) Pulse Ox 97 98 97 O2 Flow Rate 0 0 Laboratory Tests Test 01/28/25 15:34 01/28/25 15:53 01/28/25 16:53 White Blood Count 13.7 H Red Blood Count 5.05 Hemoglobin 15.8 Hematocrit 46.3 Mean Corpuscular Volume 91.6 Mean Corpuscular Hemoglobin 31.2 H Mean Corpuscular Hemoglobin Concent 34.1 Red Cell Distribution Width 12.9 Platelet Count 268 Mean Platelet Volume 9.2 Neutrophils (%) (Auto) 70.9 Lymphocytes (%) (Auto) 20.1 L Monocytes (%) (Auto) 7.0 Eosinophils (%) (Auto) 0.6 Basophils (%) (Auto) 1.4 H Neutrophils # (Auto) 9.7 H Lymphocytes # (Auto) 2.7 Monocytes # (Auto) 1.0 H Eosinophils # (Auto) 0.1 Basophils # (Auto) 0.2 CBC Comment Sodium Level 140 Potassium Level 3.7 Chloride Level 103 Carbon Dioxide Level 29.4 Anion Gap 8 Blood Urea Nitrogen 17 Creatinine 0.87 Estimated GFR/1.73 m2 > 90 BUN/Creatinine Ratio 19.5 Glucose Level 138 H Lactic Acid Level 1.4 Calcium Level 9.7 Total Bilirubin 0.3 Aspartate Amino Transf (AST/SGOT) 33 Alanine Aminotransferase (ALT/SGPT) 118 H Alkaline Phosphatase 77 Total Creatine Kinase 108 Pro-B-Type Natriuretic Peptide < 30 Total Protein 8.2 Albumin 4.5 Globulin 3.7 Albumin/Globulin Ratio 1.2 Procalcitonin < 0.05 Chemistry Comments Erythrocyte Sedimentation Rate 7 Medical Decision Making Findings Of the patient's presentation with various complaints of neuropathy combined with blurred vision gait disturbances weakness.; I requested blue deven consultation Neurology then indicated that the patient based on recent change in symptoms required a CTA of head and neck. Also requested hospitalization an MRI with and without contrast Differential Dx:Considerations: Include: Anderson's Palsey, CVA, Delirium tremens, DKA, Drug overdose, Electrolyte imbalance, Encephalopathy, Hypoxemia, Hypoglycemia, Mass lesion, Respiratory failure, Subarachnoid Hemorrhage, TIA, Other Departure Disposition: ADMITTED INPATIENT Impression: Primary Impression: Numbness of face Additional Impressions: Occipital neuralgia Neuropathy Condition: Stable Referrals: NO PRIMARY CARE PROVIDER (PCP) Signature Scribe Signature: x Attestation: Scribed for Manuel Acosta Putty Glazer by Manuel Christiansen NP . 01/28/25 17:28 MANUEL ACOSTA NP Jan 28, 2025 15:51
--- NOTE | 2025-01-28 16:05 | ELECTROCARDIOGRAPH REPORT ---
[facility] Test Date: 2025-01-28 Test Time: 15:34:42 Pat Name: RHEA HAWKINS Department: [facility]- Patient ID: [facility]-[id number] Room: Gender: M Factory Supervisor: : 2000 Requested By: STEVEN ACOSTA Order Number: [id number] Reading MD: Measurements Intervals [place] Rate: 68 P: 59 RI: 135 QRS: 76 QRSD: 98 T: 18 QT: 375 QTc: 399 Interpretive Statements Sinus rhythm Please click the below link to view image of tracing.
[2025-01-28 16:10] LABS: CREATININE 0.87 MG/DL (0.60-1.10); TOTAL CARBON DIOXIDE 29.4 MMOL/L (24-32); eCRCL 130 ML/MIN; eGFR > 90 ML/MIN
--- NOTE | 2025-01-28 16:13 | RADIOLOGY REPORT ---
CHEST RADIOGRAPH Indication: Stroke Alert Technique: Single frontal view of the chest was obtained Comparison: None FINDINGS: The cardiac silhouette is unremarkable. The lungs demonstrate perihilar airspace opacities. The pulmo nary vasculature is prominent. Small left pleural effusion. There is no pneumothorax. IMPRESSION: Pulmonary vasculature congestion and bilateral perihilar airspace opacities. Small left pleural effusion
--- NOTE | 2025-01-28 16:56 | [facility] CONS[facility] REPORT ---
[facility] Procedure Note [facility] Procedure Note Consult [facility] Note # Demographics Consult Type: General Neurology Patient Location: Emergency Room First Name: RHEA Last Name: ROSS Date of : 2000 Age: 24 Gender: Male Facility: [facility] Time of Initial Page (): 01/28/2025 16:38 First Contact with Site (): 01/28/2025 16:38 # HPI History: 24yom with HTN who p/w blurry vision, dysarthria, balance problems, confusion, dizziness. He says he has had blurry vision off and on for about a week, dysarthria started around noon, and confusion and dizziness all day. He currently has L sided weakness, which family member says is normal and will occur randomly for the past 4 years. He sees a neurologist who says this is complex regional pain syndrome. Had a recent MRI brain which showed mild T2 hyperintense lesions that could possibly be secondary to migraines or demyelination. This MRI was prior to his current symptoms/ Last Known Normal: - I have collected independent history specific to time last normal or last known well. We have collaborated with the provider and at this time, we have the most current timeline with the information that is available. # Scores Time of exam and NIHSS (): 01/28/2025 16:47 Level of Consciousness 1a: [0] = Alert; keenly responsive LOC Questions 1b: [0] = Answers both questions correctly LOC Commands 1c: [0] = Performs both tasks correctly Best Gaze 2: [0] = Normal Visual 3: [0] = No visual loss Facial Palsy 4: [0] = Normal symmetrical movements Motor Arm Left 5a: [4] = No movement Motor Arm Right 5b: [0] = No drift Motor Leg Left 6a: [4] = No movement Motor Leg Right 6b: [0] = No drift Limb Ataxia 7: [0] = Absent Sensory 8: [2] = Severe to total sensory loss Best Language 9: [0] = No aphasia Dysarthria 10: [0] = Normal Extinction and Inattention 11: [0] = No abnormality NIHSS Total: 10 # Assessment Impression: - Weakness Had MRI recently but unfortunately prior to the onset of his current symptoms. Given he has significant new symptoms, recommend repeat imaging to r/o central disease # Plan Labs: Full infectious and metabolic workup for AMS Imaging: (urgency: STAT): - CT Angiogram Head and CT Angiogram Neck AND call back with results if abnormal Imaging: (urgency: routine): - MRI Brain with AND without contrast - MRI C spine w and wo contrast Other: - If patient has any neurological deterioration please call me back immediately # Logistics Attestation of consult completion: The patient is located at: [facility]. Facility staff participated in the visit. I performed this telemedicine visit from my offsite office utilizing interactive 2 way audio and visual telecommunication technology at the request of the onsite emergency room provider. Total time spent in telemedicine encounter: I spent 23 minutes reviewing clinical data and/or imaging, obtaining history, examining the patient, communicating with the onsite care team, and in preparation of this report. # Demographics First Name: RHEA Last Name: ROSS Facility: [facility] Neuro Consult Order placed for: Yes GINNY MENCHACA MD Jan 28, 2025 16:56
[2025-01-28] MEDS ORDERED: TIZA6CAP7 PO (17:35)
--- NOTE | 2025-01-28 18:15 | RADIOLOGY REPORT ---
EXAM: CT CT HEAD INDICATION: neuropathy TECHNIQUE: CT images of the head were obtained without administration of IV contrast. CT scans at [facility] facility use dose modulation, iterative reconstruction, and/or weight based dosing when appropriate to reduce radiation dose to as low as reasonably achievable. COMPARISON: MR MRI HEAD on DOS: 01/26/25 FINDINGS: PARENCHYMA: No acute hemorrhage. There is no mass effect, midline shift, or herniation. There is pres ervation of the osullivan white differentiation. VENTRICLES: No hydrocephalus. EXTRA-AXIAL SPACES: No extra-axial fluid collections. OTHER: The bony structures are intact. Visualized portions of the paranasal sinuses and mastoid air cells are clear. IMPRESSION: 1. No CT evidence of an acute intracranial abnormality.
[2025-01-28] MEDS ORDERED: ondansetron/PF 4mg/2ml inj IV PRN (18:30)
[2025-01-28] MEDS ORDERED: magnesium Cl slow-release 64mg tablet PO PRN (18:30)
[2025-01-28] MEDS ORDERED: potassium Cl 40MEQ/1/2NS 520ml 520 ML IV PRN (18:30)
[2025-01-28] MEDS ORDERED: magnesium sulf-water 2g/50mL 50 ML IV PRN (18:30)
[2025-01-28] MEDS ORDERED: magnesium hydroxide 30ml (MOM) UD suspension PO PRN (18:30)
[2025-01-28] MEDS ORDERED: mag hydrox/Alum hydrox/simeth 30ml oral suspension PO PRN (18:30)
[2025-01-28] MEDS ORDERED: potassium Cl 20 mEq SR tablet PO PRN ×2 (18:30)
[2025-01-28] MEDS ORDERED: magnesium sulf-water 4G/100mL 100 ML IV PRN (18:30)
--- NOTE | 2025-01-28 18:43 | HISTORY AND PHYSICAL-Residence ---
History & Physical Providers to CC Resident Creating Document: JULIANA YOST, RES CC: GORGE CARLOS MD ~ History of Present Illness Primary Medical Doctor: [facility] Reason for Admit\Complaint: Intermittent blurred vision and weakness of his left side History of Present Illness A 24-year-old male with a past medical history of HTN, sleep apnea on BiPAP presented to the ED with chief complaint of intermittent blurred vision, inability to concentrate, double vision and slurred speech along with left-sided weakness. Patient was watching TV when his symptoms started around 10:30 a.m. today when he started to feel confused described as unable to answer simple questions and experienced double vision followed by slurring of speech which was identified by his while speaking over the phone. Patient endorses associated dizziness, denies headache, nausea, vomitings, loss of consciousness, memory deficits fall or recent injury. Patient denies numbness or paresthesias. Patient denies similar history in the past. Patient denies any bleeding or clotting disease in the family Patient states that he is being evaluated for complex regional pain syndrome with a recent MRI showing hyperintensity lesions probably secondary to migraines and demyelination. The MRI was prior to his current symptoms. Patient has severed his left arm nerves during an injury in 2019 since when his left hand has numbness and on and off weakness at baseline. Patient states that weakness of his left lower extremity along with continuous weakness of the left upper extremity is a new symptom. Allergies: Coded Allergies: No Known Allergies (Unverified , 01/28/25) Home Medications Home Medications Active Reported Tizanidine Hcl 6 Mg Capsule 1 Cap PO Q8H 30 Days Pregabalin 150 Mg Capsule 1 Cap PO TID Lisinopril 30 Mg Tablet 1 Tab PO DAILY Past Medical History Past Medical History HTN Sleep apnea Left arm, shoulder and neck injury with severed nerves Past Surgical History Surgical History Comment Forearm surgeries Past Social History Social History Comment Former smoker-quit two years ago-smoked half pack of cigarettes per day for the five years Consumes one beer a day Former marijuana use in the form of edibles and smoking Denies drug use Lives at home with Goes to [facility] for primary care Alcohol Use: Occasionally Drug Use: Marijuana Lives with: Family Lives In: Home ROS ROS Constitutional: No fever, chills, dizziness, weight gain or loss Eyes: No pain, erythema, discharge, blurring of vision ENT: No sore throat, epistaxis, tinnitus Cardiovascular: No shortness of breaths. Chest pressure, chest discomfort, palpitations, syncope, lower extremity edema, paroxysmal nocturnal dyspnea Respiratory: No Shortness of breath and cough, No hemoptysis Gastrointestinal: Normal appetite. No nausea, vomiting, diarrhea, constipation, hematemesis, abdominal pain, bloating, melena or fresh blood Musculoskeletal:chronmic edema. Integumentary: No change in skin, hair, nails. No swelling, bruising, abrasions Neurologic: Left-sided weakness, intermittent weakness of his left upper arm associated with the numbness in paresthesias, blurred vision/double vision, slurring of speech, dizziness. Psychiatric: No delusions, depression, loss of interest in normal activity or change in sleep pattern, hallucinations, suicidal ideations Endocrine: No fatigue, weakness, polydipsia, polyuria, change in appetite, heat or cold intolerance, sweating, dry skin Exam Vitals: Vital Signs Date Time Temp Pulse Resp B/P (MAP) Pulse Ox O2 Delivery O2 Flow Rate FiO2 01/28/25 18:21 70 18 145/96 (112) 97 01/28/25 17:11 0 01/28/25 14:05 98.1 General: General: Obese young male, Alert, awake, oriented, not in acute distress HEENT: PERRLA, no icterus, pallor, lymphadenopathy, carotid bruit Respiratory system: Bilateral vesicular breath sounds heard, no adventitious breath sounds CVS: S1-S2 heard, no murmurs/rubs/gallop GI: Diffusely distended obese abdomen, Soft, nontender, no organomegaly, no guarding/rigidity, bowel sounds present Neuro: Decreased sensation on the left side of the forehead, and lower part of the face, no deviation of the mouth, or loss of nasolabial folds, unable to shrug the left shoulder in view of injury at baseline, bilateral upper and lower extremity muscle tone and bulk appears to be normal, left upper and lower extremity power: 1/5, right upper and lower extremity power: 4/5, coordination intact, gait could not be examined Extremities: No edema cyanosis clubbing Musculoskeletal: Surgical scar present in the left forearm, unable to move the left hand Skin: Warm and dry Psych: Normal mood and affect Diagnostic Data Last Recorded Lab Results: 01/28/25 1534 01/28/25 1534 Advance Care Planning Advanced Care plannin - 30 Minutes (I spent 20 minutes discussing various resuscitative measures and the patient decided to be full code) Additional Plan Assessment: A 24-year-old male with past medical history of HTN presented to the ED in view of left-sided weakness, blurring of vision, slurring of speech this morning. Patient is admitted for the evaluation and management of CVA. Plan: Possible acute ischemic stroke NIHSS: 10 CT head: No CT evidence of an acute intracranial abnormality. Prior MRI at [facility] prior to the current symptoms: mild T2 hyperintense lesions Follow up with CTA head, MRI head and C-spine, echo, lipid panel, A1c, urinalysis and U tox Neurology recommended: MRI head and C-spine, echo, CTA head and neck. Appreciate recommendations Received one dose of aspirin 325 mg, continue aspirin 81 mg Started with the patient on atorvastatin 80 mg once daily Allow for permissive HTN for 48 hours, maintain SBP within the range 120 to 180 NPO until bedside swallow eval Aspiration precautions Neuro check q.12h Continue to monitor telemetry Possible community-acquired pneumonia Chest x-ray: Bilateral hilar prominence is probably opacities Elevated leukocyte count Follow up with procalcitonin and cultures Started the patient on IV Rocephin (day 1/5) and IV azithromycin (day 1/3) Complex regional pain syndrome Outpatient neurology management HTN Allow permissive hypertension Sleep apnea Morbidly obese BiPAP and RT therapy Code status: Full code Diet: NPO until bedside swallow eval Anticoagulation: Aspirin Disposition: Admit to neuro, follow up with MRI head and C-spine, CTA head and neck, echo Juliana Yost MD Internal Medicine, PGY 2 Date of Service: Jan 28, 2025 Billing Provider: GORGE CARLOS MD, SIVA, RES Jan 28, 2025 18:43
--- NOTE | 2025-01-28 19:00 | RADIOLOGY REPORT ---
EXAM: CT CTA NECK/HEAD INDICATION: neuropathy EXAM DATE: 01/28/2025 05:45 PM COMPARISON: None TECHNIQUE: A noncontrast dataset was obtained. Subsequently, a volumetric data acquisition of the hea d and neck was obtained during the arterial phase of enhancement. A total of 60 mL of Omnipaque 350 w as administered intravenously. One or more of the following radiation dose reduction techniques were used for this examination: automated exposure control, adjustment of the mA and/or kV according to pa tient size, use of iterative reconstruction technique. 3-D postprocessing is performed by technologist including MIP imaging Determination of the degree of stenosis in the internal carotid arteries is obtained using measureme nts of distal internal carotid diameter (directly or indirectly) as the denominator for stenosis maribell urement. The method utilized is similar to that utilized in the [place] Symptomatic Carotid E ndarterectomy Trial (NASCET) method. If the degree of stenosis is greater than 30%, the actual percen tage stenosis is given in the body of the report. Radiation Dose Information: CT Dose: CTDI volume is 37.41 mGy. Dose-length product is 649.84 mGy*cm Findings: Neck: The aortic arch and great vessels are within normal limits. The common carotid arteri es, carotid bifurcation, internal and external carotid arteries are within normal limits. Vertebral a rteries are within normal limits, with right dominant. No evidence of aneurysm, dissection, or stenos is. The pharynx and upper airway appear normal with no evidence of stricture or focal lesion. No evidence of cervical lymphadenopathy. The thyroid, submandibular, and parotid glands appear normal. Osseous structures and lung apices appear unremarkable. Brain: Intracranial Anterior Circulation: The RIGHT anterior circulation including the right internal carotid artery, middle cerebral artery, and anterior cerebral artery demonstrates no abnormality. Th e LEFT anterior circulation including the left internal carotid artery, middle cerebral artery, and a nterior cerebral artery demonstrates no abnormality. The anterior communicating artery is unremarkabl e. No posterior communicating arteries are identified. Vertebrobasilar Circulation: The basilar artery is unremarkable. The RIGHT posterior cerebral artery, superior cerebellar artery, and posterior inferior cerebellar artery demonstrate no abnormality. The LEFT posterior cerebral artery, superior cerebellar artery, and posterior inferior cerebellar artery demonstrate no abnormality. Other: The visualized dural sinuses and intradural venous system are unremarkable. No evidence of int racranial mass, mass effect, or abnormal enhancement. The skull base, calvaria, orbits, and overlying soft tissues are intact. The paranasal sinuses, mastoid air cells, and middle ear cavities are clear and well aerated. Impression: 1. No evidence of stenosis, aneurysm, or dissection.
[2025-01-28] MEDS: CefTRIAXone/D5W-Rocephin 1gm 50 ML IV SCH (19:05)
[2025-01-28] MEDS: PERFLUTREN PROTEIN-A MICROSPHR (Optison) 0.22 MG/ML 3ML VIAL IV ONE (19:14)
[2025-01-28 19:37] LABS: PRO BRAIN NATRIURETIC PEPTIDE < 30 PG/ML (0-125)
[2025-01-28 19:41] LABS: LEUKOCYTE ESTERASE ,URINE NEGATIVE (Neg); NITRITES, URINE NEGATIVE (Neg); OCCULT BLOOD,URINE NEGATIVE (Neg)
[2025-01-28 19:43] LABS: UA COLLECTION TYPE CLN CATCH MIDSTREAM
[2025-01-28 19:51] VITALS: PULSE 77; RESP 18; O2SAT 95
[2025-01-28] MEDS: K and/or MAG REPLACEMENT MC SCH (20:00)
[2025-01-28] MEDS: docusate sod 100mg capsule PO SCH (20:00)
[2025-01-28] MEDS: methylPREDNISolone sod succ/PF 40mg inj. IV SCH (21:32)
[2025-01-28] MEDS ORDERED: ALBU10.7 NEB (21:56)
[2025-01-28 22:00] VITALS: BP 143/80; PULSE 65; RESP 16; TEMP 98.1; O2SAT 100
[2025-01-28 23:13] VITALS: PULSE 73; RESP 16; O2SAT 94
[2025-01-28] MEDS ORDERED: budesonide 0.5mg/2ml UD nebule IH PRN (23:50)
[2025-01-29 02:00] VITALS: BP 123/39; PULSE 82; RESP 16; TEMP 97.5; O2SAT 96
[2025-01-29] MEDS: HYDROcodone/acetaminophen 5mg/325mg tablet PO PRN (05:10)
[2025-01-29] MEDS ORDERED: albuterol 2.5 MG/3 ML nebule NEB PRN (05:35)
[2025-01-29 06:20] LABS: MEAN PLATELET VOLUME 9.6 FL (7.4-10.4); RED CELL DISTRIBUTION WIDTH 13.0 % (11.5-14.5)
[2025-01-29 06:54] LABS: CHOL/HDL RATIO 4.1 (0.00-4.99); CREATININE 1.05 MG/DL (0.60-1.10); LDL CHOLESTEROL 127 MG/DL (50-100); TOTAL CARBON DIOXIDE 26.3 MMOL/L (24-32); eCRCL 108 ML/MIN; eGFR 86 ML/MIN
[2025-01-29 06:55] VITALS: BP 147/73; PULSE 67; RESP 16; TEMP 98.1; O2SAT 95
[2025-01-29] MEDS: nicotine 14mg patch - 24hr TD SCH (07:32)
[2025-01-29] MEDS: azithromycin/NS 500mg/250ml 250 ML IV SCH (09:35)
[2025-01-29 10:23] VITALS: BP 118/73; PULSE 86; RESP 14; TEMP 97.8; O2SAT 96
--- NOTE | 2025-01-29 11:30 | RADIOLOGY REPORT ---
PROCEDURE: MR MRI HEAD Indication: CVA COMPARISON: CT CT HEAD on DOS: 01/28/25, MR MRI HEAD on DOS: 01/26/25 TECHNIQUE: Multiplanar multisequence images of the brain are obtained. FINDINGS: There is no abnormal diffusion restriction. Mild periventricular/subcortical white matter T2/FLAIR hy perintense changes. There is no intracranial hemorrhage. No extra-axial fluid collection, mass effect or midline shift. The ventricles are midline and normal in size. The cisterns are patent. Normal int racranial flow voids are preserved. No abnormal susceptibility signal. The sinuses and mastoids are well pneumatized. The visualized orbits are unremarkable. IMPRESSION: No acute cerebrovascular ischemia. Mild T2/FLAIR hyperintense changes which could be secondary to migraines, demyelinating processes, mi ld chronic microvascular ischemic changes.
--- NOTE | 2025-01-29 12:26 | RADIOLOGY REPORT ---
EXAM: MR MRI C SPINE INDICATION: NERVE COMPRESSION TECHNIQUE: Multiplanar, multisequence imaging of the cervical spine without contrast. COMPARISON: MR MRI HEAD on DOS: 01/29/25 FINDINGS: Significantly limited evaluation secondary to patient motion. [ANATOMY]: Straightening of the normal cervical lordosis, which may be seen in the setting of patient positioning versus muscular spasm. [BONES]: The vertebral bodies are normal in height, alignment, and marrow signal. [CERVICAL CORD]: The cervical cord is normal in signal and morphology. [DISCS]: Diffuse disc desiccation. No measurable significant disc herniation [FACETS]: Unremarkable [OTHER]: There is no prevertebral soft tissue swelling. The visualized paraspinal soft tissues are no rmal. [C2-C3]: Unremarkable. [C3-C4]: Unremarkable. [C4-C5]: Mild left foraminal narrowing secondary to asymmetric uncovertebral spurring (8-17). [C5-C6]: Unremarkable. [C6-C7]: Unremarkable. [C7-T1]: Unremarkable. IMPRESSION: 1. Straightening of the normal cervical lordosis, which may be seen in the setting of patient positio jourdan versus muscular spasm. 2. Allowing for limitation from patient motion, no significant spinal canal narrowing. 3. Mild left foraminal narrowing secondary to asymmetric uncovertebral spurring
[2025-01-29 16:01] VITALS: PULSE 88; RESP 18; O2SAT 97
--- NOTE | 2025-01-29 17:22 | PROGRESS NOTE- Residence ---
Progress Note - Resident Providers to CC Resident Creating Document: JULIANA YOST RES CC: GORGE CARLOS MD ~ Antibiotic Timeout Antibiotic Ordered?: Yes Subjective Patient is examined at bedside. was at bedside who states the patient was doing better yesterday but was confused this morning. Patient probably has intermittent confusion. Objective Vital Signs Date Time Temp Pulse Resp B/P (MAP) Pulse Ox O2 Delivery O2 Flow Rate FiO2 01/29/25 16:01 88 18 97 Room Air* 0 21 01/29/25 10:23 97.8 118/73 (88) Result Diagram: 01/29/25 0545 01/29/25 0545 General: Obese young male, Alert, awake, oriented, not in acute distress HEENT: PERRLA, no icterus, pallor, lymphadenopathy, carotid bruit Respiratory system: Bilateral vesicular breath sounds heard, no adventitious breath sounds CVS: S1-S2 heard, no murmurs/rubs/gallop GI: Diffusely distended obese abdomen, Soft, nontender, no organomegaly, no guarding/rigidity, bowel sounds present Neuro: Decreased sensation on the left side of the forehead, and lower part of the face, no deviation of the mouth, or loss of nasolabial folds, unable to shrug the left shoulder in view of injury at baseline, bilateral upper and lower extremity muscle tone and bulk appears to be normal, left upper and lower extremity power: 1/5, right upper and lower extremity power: 4/5, coordination intact, gait could not be examined Extremities: No edema cyanosis clubbing Musculoskeletal: Surgical scar present in the left forearm, unable to move the left hand Skin: Warm and dry Assessment Assessment A 24-year-old male with past medical history of HTN presented to the ED in view of left-sided weakness, blurring of vision, slurring of speech this morning. Patient is admitted for the evaluation and management of CVA. Plan Plan Possible acute ischemic stroke NIHSS: 10 CT head: No CT evidence of an acute intracranial abnormality. Prior MRI at OSH prior to the current symptoms: mild T2 hyperintense lesions Follow up with CTA head, MRI head and C-spine, echo, lipid panel, A1c, urinalysis and U tox MRI head: Mild T2/FLAIR hyperintense changes which could be secondary to migraines, demyelinating processes, mild chronic microvascular ischemic changes. MRI spine: Straightening of the normal cervical lordosis, which may be seen in the setting of patient positioning versus muscular spasm. CTA head and neck: No evidence of stenosis, aneurysm, or dissection. Echo: EF: 70%, RVSP: 18 mmHg Continue aspirin 81 mg and atorvastatin 80 mg once daily Allow for permissive HTN for 48 hours, maintain SBP within the range 120 to 180 Aspiration precautions Neuro check q.12h Continue to monitor telemetry PT eval and treat Possible community-acquired pneumonia (a combination of Gram-negative and Gram- positive organisms) Chest x-ray: Bilateral hilar prominence is probably opacities Leukocyte count, downtrending Procalcitonin is normal Continue IV Rocephin (day 2/5) and IV azithromycin (day 2/3) IV methylprednisolone 40 mg b.i.d. Complex regional pain syndrome Outpatient neurology management HTN Allow permissive hypertension Sleep apnea Morbidly obese BiPAP and RT therapy Code status: Full code Diet: Heart healthy diet Anticoagulation: Aspirin Disposition: Continue care in neuro, continue to monitor telemetry, probable discharge tomorrow Juliana Yost MD Internal Medicine, PGY 2 Date of Service: Jan 29, 2025 Billing Provider: GORGE CARLOS MD, SIVA, RES Jan 29, 2025 17:22
[2025-01-29 18:00] VITALS: BP 134/71; PULSE 66; RESP 18; TEMP 98.1; O2SAT 99
[2025-01-29 22:00] VITALS: BP 131/55; PULSE 71; RESP 19; TEMP 97.8; O2SAT 95
[2025-01-30 00:06] VITALS: PULSE 80; RESP 16; O2SAT 96
[2025-01-30 02:00] VITALS: BP 122/70; PULSE 65; RESP 19; TEMP 97.8; O2SAT 95
[2025-01-30 05:36] LABS: MEAN PLATELET VOLUME 9.8 FL (7.4-10.4); RED CELL DISTRIBUTION WIDTH 12.7 % (11.5-14.5)
[2025-01-30 06:00] VITALS: BP 135/74; PULSE 77; RESP 16; TEMP 97.5; O2SAT 96
[2025-01-30 06:00] LABS: CREATININE 0.91 MG/DL (0.60-1.10); TOTAL CARBON DIOXIDE 26.7 MMOL/L (24-32); eCRCL 124 ML/MIN; eGFR > 90 ML/MIN
[2025-01-30] MEDS ORDERED: DEXTROSE 15 GM of carb/4 tabs (each vial/BOTTLE has 4 tablets) PO PRN ×2 (08:10)
[2025-01-30] MEDS ORDERED: glucagon, human recombinant 1mg kit SUBCUT PRN (08:10)
[2025-01-30] MEDS ORDERED: dextrose 50%-water 50ml dispensing syringe IV PRN ×2 (08:10)
[2025-01-30 10:00] VITALS: BP 136/82; PULSE 94; RESP 12; TEMP 97.6; O2SAT 96
--- NOTE | 2025-01-30 10:35 | CARDIOLOGY REPORT ---
APPROVED REPORT EXAM: Comprehensive 2D, Doppler, and color-flow Echocardiogram. Patient Location: 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 134.4 cm/s AoV VTI 27.7 cm AO Peak GR. 7.2 mmHg AO Mean GR. 4 mmHg LVOT VTI 24.61 cm LVOT Peak Bin. 127.7 cm/s MAHOGANY(VTI)/BSA 3.11 cm2/m2 MAHOGANY (VTI) 3.11 cm2 Mitral Valve MV E Velocity 113.8 cm/s MV DECEL TIME 208 ms MV A Velocity 25.0 cm/s E/A Ratio 4.6 TDI Lateral E' P. V16.72 cm/s E/Lateral E' 6.8 Tricuspid Valve TR P. Velocity 138 cm/s RAP ESTIMATE 10 mmHg TR Peak Gr. 8 mmHg RVSP 18 mmHg LEFT VENTRICLE Normal LV size and wall thickness. Overall systolic function is normal. LVEF is 70%. RIGHT VENTRICLE Right ventricle appears mildly dilated with grossly normal function. ATRIA The left atrium size is normal. AORTIC VALVE Trileaflet AV appears mildly sclerotic without stenosis. No insufficiency. MITRAL VALVE Mitral valve leaflets are mildly thickened with mild annular calcification. No stenosis. Trace regurg itation. TRICUSPID VALVE The tricuspid valve is normal in structure with trace regurgitation. PULMONIC VALVE The pulmonary valve is normal in structure with physiologic insufficiency. GREAT VESSELS The aortic root is normal in size. The ascending aorta is normal in size. The IVC is normal in size a nd collapses >50% with inspiration. PERICARDIUM Normal pericardium. No effusion. Other Information Study Quality: Adequate Conclusion Normal LV size and wall thickness. Overall systolic function is normal. LVEF is 70%. Right ventricle appears mildly dilated with grossly normal function. The left atrium size is normal. Trileaflet AV appears mildly sclerotic without stenosis. No insufficiency. Mitral valve leaflets are mildly thickened with mild annular calcification. No stenosis. Trace regu rgitation. The tricuspid valve is normal in structure with trace regurgitation. The pulmonary valve is normal in structure with physiologic insufficiency. Normal pericardium. No effusion.
[2025-01-30 11:44] VITALS: PULSE 63; RESP 18; O2SAT 95
[2025-01-30] MEDS: INSULIN LISPRO 100 UNIT/ML INSULN.PEN MULTI-DOSE SQ SCH (12:01)
[2025-01-30] MEDS ORDERED: ALBU90AE INH (12:20)
[2025-01-30] MEDS ORDERED: LACT1CAP26 PO (12:20)
[2025-01-30] MEDS ORDERED: CEFD300C3 PO (12:20)
[2025-01-30] MEDS ORDERED: ASPI81TA53 PO (12:20)
[2025-01-30] MEDS ORDERED: AZIT500T9 PO (12:20)
[2025-01-30] MEDS ORDERED: NICO-631 TD (12:20)
[2025-01-30] MEDS ORDERED: ATOR20TA66 PO (12:20)
[2025-01-30] MEDS ORDERED: PRED10TA23 PO (12:20)
[2025-01-30] MEDS ORDERED: METF-1203 PO (12:24)
--- NOTE | 2025-01-30 15:51 | DISCHARGE SUMMARY-Residence ---
Discharge Summary Providers to CC Resident Creating Document: JULIANA YOST RES CC: GORGE CARLOS MD ~ Discharge Summary Admission Diagnosis: TIA, CVA rule out Hospital Course DATE OF ADMISSION: 01/28/25 DATE OF DISCHARGE: 01/30/25 Discharge Diagnosis\Comment: Possible acute ischemic stroke Community-acquired pneumonia (combination of Gram-positive and Gram-negative organisms) Complex regional pain syndrome HTN Sleep apnea, morbidly obese Operations\Procedures: None Consultants: Tele neurology Complications: None Condition on DC: Stable New Medications: Cefdinir* (Cefdinir*) 300 Mg Capsule 1 CAP PO Q12H for 5 Days, #10 CAP Lactobacillus Rhamnosus (Culturelle) 10 Billion Cell Capsule 1 CAP PO DAILY for 30 Days, #30 CAP 0 Refills Metformin HCl (Metformin HCl) 500 Mg Tablet 1 TAB PO DAILY for 30 Days, #30 TAB Prednisone (Prednisone) 10 Mg Tablet 0 PO DAILY, #42 TABLET Take 6 tabs/day x2 days then 5 daily x2 days 4 daily x2 days 3 daily x2 days 2 daily x2 days 1 daily x2 days then stop. Albuterol Sulfate (Proair Respiclick) 90 Mcg Aer.pow.ba 2 PUFFS INH Q4HPRN PRN for shortness of breath for 30 Days, #1 EA 0 Refills Aspirin (Children's Aspirin) 81 Mg Tab.chew 81 MG PO DAILY@0830 for 30 Days, #30 TAB.CHEW Atorvastatin Calcium (Atorvastatin Calcium) 20 Mg Tablet 40 MG PO DAILY for 30 Days, #60 TAB Azithromycin (Azithromycin) 500 Mg Tablet 1 TAB PO DAILY for 1 Day, #1 TAB 0 Refills Nicotine 14 MG Patch* (Habitrol 14 MG Patch*) 1 Each Patch.td24 1 PATCH TD DAILY for 15 Days, #15 PATCH Continued Medications: Albuterol Sulfate/Budesonide (Airsupra 90-80 Mcg Inhaler) 90 Mcg-80 Mcg/Actuation Hfa.aer.ad 90 MCG NEB PRN Lisinopril (Lisinopril) 30 Mg Tablet 1 TAB PO DAILY Pregabalin (Pregabalin) 150 Mg Capsule 1 CAP PO TID Tizanidine Hcl (Tizanidine Hcl) 6 Mg Capsule 1 CAP PO Q8H for 30 Days, #90 CAP 0 Refills Discharge Summary: A 24-year-old male with PMH of HTN presents to the ED in view of left-sided weakness, blurring of vision, slurring of speech on the day of admission. 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 Patient is usually consulting outpatient neurology and neurosurgery outside. A prior MRI before the onset of symptoms was done which revealed mild T2 FLAIR hyperintense changes. A repeat CT head, CTA head and neck and MRI were done in view of acute onset of new neurological symptoms which did not reveal any different from the prior MRI or had any significant findings. Neurology was consulted who recommended imaging aspirin atorvastatin with permissive hypertension for 48 hours. Patient's symptoms were clinically improving. Patient's chest x-ray revealed bilateral hilar prominence opacities indicating pneumonia which was treated with antibiotics. Patient's other medical conditions were managed as per home meds. Patient is physically in clinically stable for discharge. Physical examination at discharge: General: Obese young male, Alert, awake, oriented, not in acute distress HEENT: PERRLA, no icterus, pallor, lymphadenopathy, carotid bruit Respiratory system: Bilateral vesicular breath sounds heard, no adventitious breath sounds CVS: S1-S2 heard, no murmurs/rubs/gallop GI: Diffusely distended obese abdomen, Soft, nontender, no organomegaly, no guarding/rigidity, bowel sounds present Neuro: Decreased sensation on the left side of the forehead, and lower part of the face, no deviation of the mouth, or loss of nasolabial folds, unable to shrug the left shoulder in view of injury at baseline, bilateral upper and lower extremity muscle tone and bulk appears to be normal, left upper and lower extremity power: 3/5, right upper and lower extremity power: 4/5, coordination intact, gait could not be examined (improving neurological signs) Extremities: No edema cyanosis clubbing Musculoskeletal: Surgical scar present in the left forearm, unable to move the left hand Skin: Warm and dry Labs at discharge: WBC: 19.1, H/H: 14.8/43.3, platelet count: 281 BUN: 19, creatinine: 0.91, sodium: 137, potassium: 4.4 Imaging: Head MRI:Mild T2/FLAIR hyperintense changes which could be secondary to migraines, demyelinating processes, mild chronic microvascular ischemic changes. Echo: Overall systolic function is normal. LVEF is 70%. Cervical spine MRI: Straightening of the normal cervical lordosis, which may be seen in the setting of patient positioning versus muscular spasm. Chest x-ray:Pulmonary vasculature congestion and bilateral perihilar airspace opacities. Head neck CTA: No evidence of stenosis, aneurysm, or dissection. HCT:No CT evidence of an acute intracranial abnormality. Discharge medications can be found above and patient is discharged home with the following recommendations: Follow up with your PCP within two weeks of discharge. Follow up with your neurologist and neurosurgeon that your seeing within two weeks of discharge. We started you on aspirin and atorvastatin, please maintain compliance. We gave you antibiotics for five more days, please complete the course. Your A1c is 6.4. Therefore we started you on metformin 500 mg. Please maintain compliance and have a regular follow up with your primary care with regards to this. Strong suggestion to quit tobacco smoking. We gave you steroid taper for pneumonia. Please continue per the instructions below: Take 6 tabs/day x2 days then 5 daily x2 days 4 daily x2 days 3 daily x2 days 2 daily x2 days 1 daily x2 days then stop. Return to ER in view of worsening weakness or altered mental status. *Problems/Diagnosis: (1) Community acquired pneumonia (2) Acute CVA (cerebrovascular accident) Total Time Spent on D/C: > 30 Minutes Date of Service: Jan 30, 2025 Billing Provider: GORGE CARLOS MD, SIVA, RES Jan 30, 2025 15:51
[2025-01-30] MEDS ORDERED: methylPREDNISolone sod succ/PF 40mg inj. IV SCH (20:00)
== END 2025-01-30 13:04 | disposition home or self-care (01) | DRG 179 ==
LOC: ER 13:57 → ED HOLD 17:25 → ORTHO 4S 21:00
PROVIDERS: ADMIT Family Medicine; ATTEND Family Medicine
PROC: B3251ZZ Computerized Tomography (CT Scan) of Bilateral Common Carotid Arteries using Low Osmolar Contrast (ICD-10-PCS; principal; 2025-01-28)
PROC: B32G1ZZ Computerized Tomography (CT Scan) of Bilateral Vertebral Arteries using Low Osmolar Contrast (ICD-10-PCS; 2025-01-28)
PROC: B32R1ZZ Computerized Tomography (CT Scan) of Intracranial Arteries using Low Osmolar Contrast (ICD-10-PCS; 2025-01-28)
PROC: B3281ZZ Computerized Tomography (CT Scan) of Bilateral Internal Carotid Arteries using Low Osmolar Contrast (ICD-10-PCS; 2025-01-28)
DX: J15.69 Pneumonia due to other Gram-negative bacteria (principal); J15.9 Unspecified bacterial pneumonia; I10 Essential (primary) hypertension; E66.01 Morbid (severe) obesity due to excess calories; G47.39 Other sleep apnea; G62.9 Polyneuropathy, unspecified; M54.81 Occipital neuralgia; F41.9 Anxiety disorder, unspecified; Z79.899 Other long term (current) drug therapy; F32.A Depression, unspecified; Z68.39 Body mass index [BMI] 39.0-39.9, adult
CPT/HCPCS: 36415; 70450; 70496; 70498; 70551; 71045; 72141; 80048; 80053; 80061; 81003; 82550; 82607; 82948; 83036; 83605; 83735; 83880; 84145; 85025; 85651; 87040; 87081; 93005; 93306; 94760; 96365; 96375; 97110; 97116; 97162; 99285; G0378; J0456; J0696; J1815; J2919; J7040; Q9967

== ENCOUNTER 2025-06-01 11:49 | Outpatient (CLI) | payer BC, MEDICAID ==
[~2025-06-01 11:49] MED LIST changes: +ALBU10.7 NEB; +ALBU2.5V7 NEB; +ALBU90AE INH; +ASPI81TA53 PO; +ATOR20TA66 PO; +AZIT500T9 PO; -IBUP-1986 PO; +LACT1CAP26 PO; -METH4TAB81 PO; +NICO-631 TD; -TIZA4CAP6; +TIZA6CAP7 PO
== END 2025-06-01 23:59 | disposition home or self-care (01) ==
LOC: LAB 11:49
PROVIDERS: ATTEND Anesthesiology
DX: M50.13 Cervical disc disorder with radiculopathy, cervicothoracic region (principal); G56.42 Causalgia of left upper limb; F43.12 Post-traumatic stress disorder, chronic; G56.12 Other lesions of median nerve, left upper limb; G89.4 Chronic pain syndrome; Z22.322 Carrier or suspected carrier of Methicillin resistant Staphylococcus aureus
CPT/HCPCS: 87081